=== PATIENT | female | born 1990 | race American Indian/Alaskan Native ===

== ENCOUNTER 2021-04-07 05:55 | Inpatient (IN) | payer MEDICAID ==
--- NOTE | 2021-04-06 21:06 | History and Physical Report ---
History of Present Illness Date of examination: 04/07/21 Chief complaint: scheduled section History of present illness: Pt is a 31 year old female JOAN 04/14/2021 at 39w0d with a history of two prior cesareans present for scheduled repeat . She reports irregular contractions, and denies vaginal bleeding or leakage of fluid. She has had limited care at [facility] since 10 wks with lapse of care from 27 to 37 wks complicated by limited care, obesity, close interval . CF carrier, and undesired fertility. She is GBS Positive. Past History Past Medical History: other (Cystic Fibrosis Carrier ) Past Surgical History: section (2013, 2019) [employer] History: chlamydia (remote from this pregnacy ), gonorrhea (remoted from this ), trichomonas (remote from [facility] ) Family/Genetic History: none Social history: no significant social history - Obstetrical History Expected Date of Delivery: 04/14/21 Actual Gestation: 38 Week(s) 6 Day(s) : 3 Para: 2 Hx # Term Pregnancies: 2 Number of Pregnancies: 0 Spontaneous Abortions: 0 Induced : 0 Number of Living Children: 2 Medications and Allergies Allergies Allergy/AdvReac Type Severity Reaction Status Date / Time No Known Allergies Allergy Unverified 02/04/20 13:36 Home Medications Medication Instructions Recorded Confirmed Last Taken Type Metoclopramide [Reglan] 10 mg PO TID #30 tab 06/22/19 Unknown Rx Ibuprofen [Motrin] 600 mg PO Q8H PRN #30 tablet 01/23/20 Unknown Rx oxyCODONE /ACETAMINOPHEN [Percocet 1 tab PO Q6HR PRN #30 tablet 01/23/20 Unknown Rx 5/325] Docusate Sodium [Colace] 100 mg PO BID PRN #60 capsule 01/25/20 Unknown Rx Review of Systems All systems: negative - Physical Exam Breasts: Positive: deferred Abdomen: Positive: soft (obese, gravid ) Uterus: Positive: enlarged (gravid ) Extremities: Positive: normal - Obstetrical FHR: auscultation normal Uterine Contraction Monitor Mode: External Uterine Contraction Pattern: Irregular Uterine Tone Measurement Phase: Resting Results All other labs normal. Assessment and Plan A: IUP at 39w0d Previous section x 2 Cystic Fibrosis Carrier Limited Care Obesity Undesired Fertility P: Routine admission labs Proceed with repeat section, bilateral tubal ligation and other indicated procedures
[2021-04-07] MEDS ORDERED: ceFAZolin/Water 2 GM/20 ML 2 GM/20 ML SYRINGE IV NR (06:00)
[2021-04-07] MEDS ORDERED: BICITRA ORAL LIQD 30ML PO ONE (06:00)
[2021-04-07] MEDS ORDERED: METOCLOPRAMIDE 10 MG/2 ML INJ IV ONE (06:00)
[2021-04-07] MEDS ORDERED: OXYTOCIN DRIP 30 UNITS/500 ML BAG IV SCH ×2 (06:00→12:50)
[2021-04-07] MEDS ORDERED: FAMOTIDINE 20 MG/2 ML INJ IV ONE (06:00)
[2021-04-07] MEDS ORDERED: LACTATED RINGERS 1,000 ML IV SCH (06:00)
[2021-04-07 06:54] LABS: Hematocrit 31.1 % (30.3-42.9); Mean Corpuscular HGB Conc 35 % (30-34); Mean Corpuscular Volume 90 fl (79-97); Platelet Count 234 K/mm3 (140-440); Red Blood Count 3.44 M/mm3 (3.65-5.03); Red Cell Distribution Width 13.7 % (13.2-15.2)
--- NOTE | 2021-04-07 07:09 | Anesthesia Consultation ---
Anesthesia Consult and Med Hx Date of service: 04/07/21 - Airway Anesthetic Teeth Evaluation: Good ROM Head & Neck: Adequate Mental/Hyoid Distance: Adequate Mallampati Class: Class II Intubation Access Assessment: Probably Good - Pulmonary Exam CTA: Yes - Cardiac Exam Cardiac Exam: RRR - Pre-Operative Health Status ASA Pre-Surgery Classification: ASA2 Proposed Anesthetic Plan: Spinal - Pulmonary Hx Asthma: No - Cardiovascular System Hx Hypertension: No - Central Nervous System Hx Seizures: No Hx Psychiatric Problems: No - Endocrine Hx Renal Disease: No Hx Hypothyroidism: No Hx Hyperthyroidism: No - Hematic Hx Anemia: No Hx Sickle Cell Disease: No - Other Systems Hx Alcohol Use: No Hx Obesity: Yes
--- NOTE | 2021-04-07 07:09 | Anesthesia Day of Surgery ---
Anesthesia Day of Surgery - Day of Surgery Patient Examined: Yes Patient H&P Reviewed: Yes Patient is NPO: Yes
[2021-04-07] MEDS ORDERED: ePHEDrine SULFATE 50 MG/1 ML INJ ONE (07:14)
[2021-04-07] MEDS ORDERED: PHENYLEPHRINE/NS 1,000 MCG/10 ML SYRINGE (OR USE) IV ONE (07:14)
[2021-04-07] MEDS ORDERED: ONDANSETRON 4 MG/2 ML INJ ONE (07:14)
[2021-04-07] MEDS ORDERED: BUPIVACAINE/PF (0.5%) 5 MG/1 ML 30 ML VIAL INFILTRATI ONE (07:14)
[2021-04-07] MEDS ORDERED: METHYLERGONOVINE MALEATE 0.2 MG/ML VIAL IM ONE (07:15)
[2021-04-07] MEDS ORDERED: CARBOPROST TROMETHAMINE 250 MCG/1 ML INJ IM ONE (07:15)
[2021-04-07] MEDS ORDERED: KETOROLAC 30 MG/1 ML INJ ONE (07:15)
[2021-04-07] MEDS ORDERED: dexAMETHasone 20 MG/5 ML VIAL ONE ×2 (07:15→10:56)
[2021-04-07] MEDS ORDERED: ceFAZolin/STERILE WATER 2 GM/20 ML SYRINGE IV ONE (07:45)
[2021-04-07 08:18] LABS: Total Cells Counted 100
[2021-04-07] MEDS ORDERED: WATER FOR IRRIG STERILE 1,500 ML BOTTLE IR ONE (08:18)
[2021-04-07] MEDS ORDERED: SODIUM CHLORIDE 0.9% IRR 1,500 ML BOTTLE IR ONE (08:18)
[2021-04-07 08:19] LABS: Band Neutrophils # (Manual) 2.9 K/mm3; Myelocytes # (Manual) 0.3 K/mm3
[2021-04-07 08:56] LABS: Dohle Bodies Few; Toxic Vacuolation Few
[2021-04-07 08:58] LABS: Large Platelets Few; Platelet Estimate Cons
[2021-04-07] MEDS ORDERED: propofoL 200 MG/20 ML VIAL IV ONE ×2 (09:36→09:51)
--- NOTE | 2021-04-07 10:22 | Operative Report ---
Operative Report Operative Report: Date of procedure: April 07, 2021 Preoperative diagnosis: 1) IUP at 39w0d 2) Previous x 2 3) Obesity 4) Undesired Fertility Postoperative diagnosis: Same 5) Intraabdominal Adhesions Procedure: 1) Repeat low transverse section 2) Bilateral tubal ligation via modified [place] method 3) Lysis of Adhesions Surgeon: Марина Francois M.D. Anesthesia: Regional Findings: 1) Viable female , Apgars 8 and 9, weight 3620, (8lb 0oz) in cephalic presentation 2) Adhesion of the right ovary and fallopian tube to the anterior surface of the uterus 3) Normal appearing uterus, ovaries and tubes Estimated blood loss: 626 mL by QBL Urine output: 150 mL, clear at the end of the procedure Drains: Allen to gravity Specimens: Tubal segments to pathology Complications: Counts correct x 3 Disposition: Stable to PACU Indication for procedure: Pt is a 31 year old -[place] female at 39w0d with a history of two prior sections and undesired fertility presents for repeat section and bilateral tubal ligation. Operation in Detail: After the risks, benefits, alternatives and complications were explained to the patient she gave informed consent for the procedure. She was subsequently taken to the operating room where regional anesthesia was noted to be adequate. She was then placed in the dorsal supine position with leftward tilt and prepped and draped in a normal sterile fashion. heart tones were noted prior to incision. A timeout was performed. A Pfannenstiel skin incision was made with the knife and carried down to the layer of the fascia with the Bovie. The fascia was incised in the midline and the fascial incision was extended bilaterally with the Bovie. The fascial incision was then stretched. The rectus muscles were then in the midline and partially transected for adequate visualization. The peritoneum was then entered sharply between two Citlali clamps. The right ovary and fallopian tube were noted to be adherent to the anterior surface of the uterus. The adhesions were doubly clamped, cut and suture ligated with 2-0 Vicryl. The peritoneal incision was extended with good visualization of the bladder. The peritoneal incision was then stretched. An Emeka retractor was placed. The bladder blade was placed. The vesicouterine peritoneum was grasped with smooth pick ups and incised with Metzenbaum scissors. A bladder flap was created and the bladder blade was replaced. A transverse incision was made with a knife in the lower uterine segment. The hysterotomy was stretched. Amniotomy was performed with egress of clear fluid. The head was delivered without difficulty followed by delivery of the shoulders and body. was bulb suctioned at delivery. The cord was clamped and cut and the was handed to NICU staff in attendance. Cord blood was collected. The placenta was then delivered manually. The uterus was exteriorized and cleared of all clots and debris. The hysterotomy was then reapproximated with 0 Monocryl in a running locked fashion. A second suture was used in an imbricated fashion. The hysterotomy was inspected and hemostasis was noted. Attention was then turned to the tubal ligation. The left tube was identified, grasped with a jill and followed out to the fimbriae. The tube was suture ligated via a modified [place] method using 0 chromic suture. The intervening tubal segment was sent to pathology. The right tube was then identified, followed out to the fimbriae and suture ligated via a modified [place] method using 0 chromic suture. Hemostasis was noted. Surgicel was placed over the tubal ostia bilaterally. The gutters were irrigated and cleared of all clots and debris. The hysterotomy was again inspected and noted to be hemostatic. Surgicel was placed over the hysterotomy. The uterus was returned to the peritoneal cavity. The Emeka retractor was removed. The peritoneum was reapproximated with 0 Monocryl in a running fashion incorporating the rectus muscles. Surgicel was placed over the rectus muscles. The fascia was reapproximated with 0-Vicryl in a running fashion. The subcutaneous tissue was reapproximated with 2-0 Vicryl in a running fashion. The skin was reapproximated with joseph. The incision was then covered with a pressure dressing. The procedure was then ended. The patient tolerated the procedure well and was taken to the PACU in stable condition. All instrument, lap, and needle counts were correct 3.
--- NOTE | 2021-04-07 10:22 | Procedure Note ---
OB Delivery Note - Delivery Date of Delivery: 04/07/21 Surgeon: ELLYN HURST Estimated blood loss: other (626 mL) - Section Preop diagnosis: repeat , desires sterilization Postop diagnosis: same section procedure: section, repeat low transverse, bilateral tubal ligation, other (Lysis of Adhesions ) Disposition: PACU Narrative: Please see operative report - A at 1 minute: 8 at 5 minutes: 9 Infant Gender: Female (3620g (8lb 0oz) @ 0857 am)
[2021-04-07] MEDS ORDERED: BUPIVACAINE/PF (0.25%) 2.5 MG/ML 30 ML VIAL INFILTRATI ONE (10:56)
[2021-04-07] MEDS ORDERED: hydrALAZINE 20 MG/1 ML INJ ONE (10:56)
--- NOTE | 2021-04-07 11:33 | Progress Note ---
Regional Anesthesia Block - Regional Anesthesia Block Start Time: 10:35 Stop Time: 10:45 Performed By:: HERIBERTO DAVENPORT Procedure: U/S guided bilateral posterior Quadratus Lumborum (QL)/ QL2 block performed for post-operative pain requested by Dr. Francois. H&P & labs reviewed. Procedure explained, questions answered, consent obtained. Patient in the supine position with ekg, blood pressure cuff and pulse ox on and working in PACU. Timeout performed immediately before start of procedure. TAP block planned, probe placed in the mid-axillary line and the external oblique, internal oblique, and transverse abdominus muscles identified. Internal oblique muscle had abnormal appearance and decision was made to switch to QL block. Probe was moved posterior to posterior axillary line so that the QL, Erector spinae, and Psoas muscles surrounding the transverse process at the aponeurosis of the external, internal, and transverse abdominus muscles superficially. Skin was cleansed with chlorahexadine 0.5% and allowed to dry. A 4" 20 G [place] echogenic needle was advanced in plane until the tip was in the fascial plane posterior to the QL muscle. After negative aspiration 35 ml/side of [30 ml 0.5% Bupivacaine], [10 mg dexamethasone], and [40 ml sterile saline] was injected in 5 ml increments with negative aspiration in between. Patient tolerated procedure well.
[2021-04-07] MEDS ORDERED: MAGNESIUM HYDROXIDE (MOM) ORAL LIQD UDC PO PRN (12:50)
[2021-04-07] MEDS ORDERED: LANOLIN/ZINC/DIMETHICONE (LANSINOH) 7 GM TP PRN (12:50)
[2021-04-07] MEDS ORDERED: ONDANSETRON 4 MG/2 ML INJ IV PRN (12:50)
[2021-04-07] MEDS ORDERED: D5W/LACTATED RINGERS 1,000 ML IV SCH (12:50)
[2021-04-07] MEDS ORDERED: WITCH HAZEL/ GLYCERIN PAD TP PRN (12:50)
[2021-04-07] MEDS ORDERED: IBUPROFEN 800 MG TAB PO PRN (12:50)
[2021-04-07] MEDS ORDERED: NALOXONE 0.4 MG/1 ML INJ IV PRN (12:50)
[2021-04-07] MEDS ORDERED: ACETAMINOPHEN 325 MG TAB PO PRN (12:50)
[2021-04-07] MEDS: KETOROLAC 30 MG/1 ML INJ IV SCH ×2 (13:21→18:39)
[2021-04-07] MEDS: oxyCODONE /ACETAMINOPHEN 5-325MG TAB PO PRN (16:47)
[2021-04-07] MEDS ORDERED: HYDROmorphone 1 MG/1 ML INJ IV PRN (16:51)
[2021-04-07] MEDS: ceFAZolin/NS 1 GM/50 ML 1 GM/50 ML BAG IV SCH (17:00)
[2021-04-07] MEDS ORDERED: HYDROmorphone 1 MG/1 ML INJ IV ONE (17:51)
[2021-04-08] MEDS: KETOROLAC 30 MG/1 ML INJ IV SCH ×2 (00:21→05:17)
[2021-04-08] MEDS: ceFAZolin/NS 1 GM/50 ML 1 GM/50 ML BAG IV SCH (01:39)
[2021-04-08] MEDS: SIMETHICONE 80 MG CHEW TAB PO PRN (05:45)
[2021-04-08] MEDS ORDERED: MEASLES, MUMPS & RUBELLA 12,500 UNIT/0.5 ML VACCINE SUB-Q ONE (06:00)
[2021-04-08] MEDS ORDERED: TETANUS,DIPH,PERTUSS(ACELL) VACCINE 0.5 ML SYRINGE IM ONE (06:00)
[2021-04-08] MEDS: oxyCODONE /ACETAMINOPHEN 5-325MG TAB PO PRN ×3 (09:16→20:32)
[2021-04-08] MEDS: FERROUS SULFATE 325 MG TAB PO SCH (09:16)
--- NOTE | 2021-04-08 11:30 | Progress Note ---
Assessment and Plan - Patient Problems (1) delivery delivered Current Visit: No Status: Acute Plan to address problem: Advance diet as tolerated Routine postoperative care Subjective - Subjective Date of service: 04/08/21 Interval history: The patient reports having some abdominal pain and was recently given simethicone and milk of magnesia. She is tolerated clear diet without complication. The patient has been able to void since removal of her Allen. Patient reports: appetite normal, voiding normally, flatus, bowel movement [place]: doing well Objective - Vital Signs Latest vital signs: Vital Signs Temp Pulse Resp BP BP Pulse Ox 04/08/21 07:56 98.6 F 71 18 97/55 97 04/08/21 04:00 98.6 F 69 16 114/69 04/08/21 00:44 98.0 F 64 18 115/47 97 04/07/21 19:50 98.0 F 74 18 91/48 96 04/07/21 19:49 98.0 F 80 18 94/50 96 04/07/21 16:52 97.7 F 71 20 106/60 95 04/07/21 16:45 97.7 F 91 H 20 105/48 96 04/07/21 12:30 98.0 F 80 18 100/52 99 04/07/21 11:35 73 20 107/63 98 Intake and Output 04/07/21 04/08/21 04/08/21 22:59 06:59 14:59 Intake Total 170 300 240 Output Total 450 1400 400 Balance -280 -1100 -160 Intake: IV 50 ANCEF/NS 1 GM/50 ML 1 gm 50 In 50 ml @ 100 mls/hr IV Q8H [facility] Rx#:[id number] Oral 120 240 Intake, Free Water 300 Output: Urine 450 1400 400 Indwelling Catheter 450 Void 1400 400 Other: Total, Intake Amount 120 240 Total, Output Amount 450 800 400 # Voids Void 1 - Exam Abdomen: Present: normal appearance Incision: Present: dressed - Labs Labs: Abnormal lab results 04/07/21 Range/Units 23:07 Hgb 9.0 L (10.1-14.3) gm/dl Hct 26.0 L (30.3-42.9) %
--- NOTE | 2021-04-08 18:14 | Post Anesthesia Evaluation ---
- Post Anesthesia Evaluation Patient Participated: Yes Airway Patent: Yes Stable Respiratory Function: Yes Nausea/Vomiting: No Temp > 96.8F: Yes Pain Manageable: Yes Adequeate Hydration: Yes Anesthesia Complications: No Block Receding Appropriately: Yes
[2021-04-09] MEDS: oxyCODONE /ACETAMINOPHEN 5-325MG TAB PO PRN ×3 (03:18→13:17)
[2021-04-09 08:49] VITALS: BP 97/45
[2021-04-09] MEDS: FERROUS SULFATE 325 MG TAB PO SCH (09:10)
[2021-04-09] MEDS: SIMETHICONE 80 MG CHEW TAB PO PRN (09:10)
--- NOTE | 2021-04-09 14:33 | Progress Note ---
Assessment and Plan POD 3 s/p ltcs. Doing well. Plan for discharge on today. Subjective - Subjective Date of service: 04/09/21 Principal diagnosis: delivery Patient reports: appetite normal, voiding normally, pain well controlled : doing well Objective - Vital Signs Latest vital signs: Vital Signs Temp Pulse Resp BP Pulse Ox 04/09/21 13:17 18 04/09/21 11:52 18 04/09/21 09:09 18 04/09/21 08:29 98.2 F 84 18 97/45 98 04/09/21 03:18 18 04/09/21 00:31 98.0 F 67 16 103/56 98 04/08/21 20:32 18 04/08/21 16:32 97.6 F 67 18 97/56 99 Intake and Output 04/08/21 04/09/21 04/09/21 22:59 06:59 14:59 Intake Total 1040 420 Balance 1040 420 Intake: Oral 560 Intake, Free Water 480 420 Other: Total, Intake Amount 200 # Voids Void 2 1 - Exam Cardiovascular: Present: Regular rate, Normal S1, Normal S2 Lungs: Present: Clear to auscultation, Normal air movement Abdomen: Present: normal appearance, soft Uterus: Present: normal, firm Extremities: Present: normal Incision: Present: normal, dry, intact
--- NOTE | 2021-04-09 14:35 | Discharge Summary ---
Providers - Providers Date of Admission: 04/07/21 05:55 Date of discharge: 04/09/21 Attending physician: SALOMÓN ORTIZ 04/07/21 12:50 Consult to Hse Advisor [CONS] Routine Reason For Exam: Primary care physician: SALOMÓN ORTIZ Hospitalization Reason for admission: induction of labor Delivery: Procedure: primary low transverse Incision: normal, dry, intact complications: none Discharge diagnosis: IUP at term delivered baby: female Hospital course: unremarkable Condition at discharge: Good Disposition: DC-01 TO HOME OR SELFCARE Plan - Discharge Medications Prescriptions: Ibuprofen [Motrin] 800 mg PO Q8HR PRN #60 tablet PRN Reason: Pain , Severe (7-10) oxyCODONE /ACETAMINOPHEN [Percocet 5/325] 1 tab PO Q6HR PRN #30 tablet PRN Reason: Pain - Provider Discharge Summary Activity: routine, no sex for 6 weeks, no heavy lifting 4 weeks, no strenuous exercise Diet: routine Instructions: routine Additional instructions: [] Smoking cessation referral if applicable(refer to patient education folder for contact #) [] Refer to [facility]'s [facility] Booklet Call your doctor immediately for: * Fever > 100.5 * Heavy vaginal bleeding ( >1 pad per hour) * Severe persistent headache * Shortness of breath * Reddened, hot, painful area to leg or breast * Drainage or odor from incision. * Keep incision clean and dry at all times and follow doctor's instructions regarding bathing/showering - Follow up plan Follow up: SALOÓMN ORTIZ MD [Primary Care Provider] - 14 Days Forms: [facility] Discharge Summary
== END 2021-04-09 16:05 | disposition home or self-care (01) | DRG 766 ==
LOC: APU 05:55 → OB 12:32
PROVIDERS: ADMIT Obstetrics & Gynecology; ATTEND Obstetrics & Gynecology
PROC: 10D00Z1 Extraction of Products of Conception, Low, Open Approach (ICD-10-PCS; principal; 2021-04-07)
PROC: 0UB70ZZ Excision of Bilateral Fallopian Tubes, Open Approach (ICD-10-PCS; 2021-04-07)
PROC: 3E0234Z Introduction of Serum, Toxoid and Vaccine into Muscle, Percutaneous Approach (ICD-10-PCS; 2021-04-08)
PROC: 3E0134Z Introduction of Serum, Toxoid and Vaccine into Subcutaneous Tissue, Percutaneous Approach (ICD-10-PCS; 2021-04-08)
DX: O99.824 Streptococcus B carrier state complicating childbirth (principal); O99.214 Obesity complicating childbirth; E66.9 Obesity, unspecified; O34.211 Maternal care for low transverse scar from previous cesarean delivery; Z20.822 Contact with and (suspected) exposure to COVID-19; O99.62 Diseases of the digestive system complicating childbirth; K66.0 Peritoneal adhesions (postprocedural) (postinfection); Z3A.38 38 weeks gestation of pregnancy; Z37.0 Single live birth; Z23 Encounter for immunization; Z79.899 Other long term (current) drug therapy; Z14.1 Cystic fibrosis carrier; Z30.2 Encounter for sterilization
CPT/HCPCS: 36415; 85007; 85014; 85018; 85025; 86592; 86850; 86900; 86901; 88302; G0378; J0360; J0690; J1100; J1170; J1885; J2370; J2405; J2704; J2765; J3490; J7120; J7121; U0003